=== PATIENT | female | born 1995 | race African-American/Black ===

== ENCOUNTER 2016-11-30 13:04 | Emergency (ER) | payer SELFPAY ==
[~2016-11-30] VITALS: Ht 167.6 cm; Wt 84.0 kg
[2016-11-30 13:10] VITALS: BP 138/90; PULSE 114; RESP 18; TEMP 98.6; O2SAT 98
[2016-11-30 13:28] VITALS: PULSE 90
[2016-11-30] MEDS ORDERED: IBUPROFEN 800 MG TAB PO ONE (13:30)
[2016-11-30] MEDS ORDERED: RESP: ALBUTEROL 2.5 MG/3 ML NEB (SCH) INH ONE (13:30)
[2016-11-30] MEDS ORDERED: predniSONE 20 MG TAB PO ONE (13:30)
--- NOTE | 2016-11-30 13:36 | PD ---
HPI Chief Complaint: Cold / Flu Symptoms Time Seen by Provider: 13:30 Travel History International Travel<30 days: No Contact w/Intl Traveler<30days: No Traveled to known affect area: No History of Present Illness HPI 21-year-old female presents to the emergency Department with complaint of cough , nasal congestion, chest tightness, shortness of breath, body aches 3 days. Says she has congestion in her chest and when she calls it just doesn't come up. Denies ear pain. Says she started out with a sore throat and the beginning but denies sore throat now. Denies history of asthma. Reports cough exacerbations that make her vomit. Denies chest pain, abdominal pain. Denies hemoptysis. Reports MAXIMUM TEMPERATURE 103.0 on day 1 of illness. Denies fever currently. Has not taken any medications or tried any treatments to alleviate her symptoms. No known relieving or aggravating factors. No known allergies. No other medical complaints. No other modifying factors or associated signs and symptoms. PFSH Social History Tobacco Use: Yes Allergies-Medications (Allergen,Severity, Reaction): Coded Allergies: No Known Allergies (Unverified , 11/30/16) Reported Meds & Prescriptions Reported Meds & Active Scripts Active Ibuprofen 800 Mg Tab 800 Mg PO Q6HR PRN Deltasone (Prednisone) 20 Mg Tab 40 Mg PO DAILY 4 Days start 12/01/2016 Azithromycin 500 Mg Tab 500 Mg PO DAILY Tessalon Perles (Benzonatate) 100 Mg Cap 100 Mg PO TID PRN Proair Hfa 8.5 GM Inh (Albuterol Sulfate) 90 Mcg/Act Aer 2 Puff INH Q4-6H PRN 108 mcg/actuation Review of Systems Except as stated in HPI: all other systems reviewed are Neg Physical Exam Narrative GENERAL: Well-nourished, well-developed female patient, in no acute distress; afebrile, nontoxic-appearing SKIN: Warm and dry. HEAD: Atraumatic. Normocephalic. EYES: Pupils equal and round. No scleral icterus. No injection or drainage. ENT: Mucosa pink and moist. No erythema or exudates. No uvular edema. No uvular , palatal, or tonsillar deviation. Airway patent. Nares without nasal blood, purulent drainage or septal hematoma. EARS: Bilateral pinnae and external canals appear within normal limits. Bilateral tympanic membranes without erythema, dullness or perforation. NECK: Trachea midline. No lymphadenopathy. CARDIOVASCULAR: Regular rate and rhythm. No murmur appreciated. RESPIRATORY: No accessory muscle use. Lungs with Wheezing throughout to auscultation. Breath sounds equal bilaterally. No retractions or tachypnea. No Audible wheezing noted. Consistent dry cough during physical exam. GASTROINTESTINAL: Abdomen soft, non-tender, nondistended. Hepatic and splenic margins not palpable. Bowel sounds are active 4 quadrants. MUSCULOSKELETAL: No obvious deformities. No clubbing. No cyanosis. No edema. NEUROLOGICAL: Awake and alert. Oriented 3. No obvious cranial nerve deficits. Motor grossly within normal limits. Normal speech. Moves all extremities. 5/5 strength to all extremities. PSYCHIATRIC: Appropriate mood and affect; insight and judgment normal. Data Data Last Documented VS Vital Signs Date Time Temp Pulse Resp B/P Pulse Ox O2 Delivery O2 Flow Rate FiO2 11/30/16 15:27 20 11/30/16 13:28 90 11/30/16 13:10 98.6 138/90 98 Orders Influenzae A/B Antigen (11/30/16 13:22) Chest, Single Ap (11/30/16 13:28) Prednisone (Deltasone) (11/30/16 13:30) Albuterol Neb (Albuterol Neb) (11/30/16 13:30) Ibuprofen (Motrin) (11/30/16 13:30) Albuterol-Ipratropium Neb (Duoneb Neb) (11/30/16 14:45) MDM Medical Decision Making Medical Screen Exam Complete: Yes Emergency Medical Condition: Yes Medical Record Reviewed: Yes Differential Diagnosis Acute bronchitis, influenza, pneumonia Narrative Course 21-year-old female with cold/flu symptoms 3 days. Reports MAXIMUM TEMPERATURE 103.0. Patient is afebrile and nontoxic-appearing in the ER. Reports chest tightness and shortness of breath with coughing exacerbations that cause her to vomit. Lungs are with wheezing on auscultation. Patient has consistent dry cough during physical exam. She is in no acute distress and her oxygen saturation is 98% on room air. No retractions or tachypnea. Heart rate recheck on physical exam is approximately 90 bpm. Influenza, chest x-ray, Deltasone, albuterol nebulizer, ibuprofen ordered. 1411: Influenza negative. After the first breathing Treatment the patient continued to complain of chest tightness but denied shortness of breath. The patient did have some wheezing on auscultation to the left lower lung base. DuoNeb was ordered and administered and on reexamination after the breathing treatment the patient reports improvement in symptoms without chest tightness or shortness of breath. The lungs are clear and equal throughout. Pro-air inhaler, Tessalon Perles, Deltasone, azithromycin, ibuprofen prescribed for home. I prescribed antibiotics secondary to report of fever. Patient verbalizes understanding and agreement with treatment plan. Patient is medically cleared and stable for discharge. Discussed reasons to return to the emergency department. Instructed patient to follow up with primary care provider. Patient agrees with treatment plan. The patients vital signs are stable and the patient is stable for outpatient follow-up and treatment. Patient discharged home, stable and in no acute distress. Diagnosis Primary Impression: Acute bronchitis Qualified Code: J20.9 - Acute bronchitis, unspecified organism Referrals: Primary Care Physician Patient Instructions: Acute Bronchitis (ED), General Instructions, Upper Respiratory Infection (ED) Departure Forms: School Release, Return to School Date: Dec 02, 2016 Tests/Procedures, Work Release Enter return to work date: Dec 02, 2016 Additional Instructions: Use Albuterol inhaler as prescribed Take oral steroids as prescribed and complete full course Use Tessalon Perles as prescribed to decrease coughing spasms [id number] decongestants or antihistamines as directed and as needed for symptom management Your cough can last 4-6 weeks Drink plenty of fluids to prevent dehydration Use hot air humidifier to decrease cough exacerbation Turn off ceiling fans and sleep with head of bed elevated Avoid triggers such as second hand smoke, dust, known allergens Follow-up with your primary care provider Return to the emergency department immediately with worsening of symptoms Med/Other Pt SpecificInfo: Prescription(s) given Scripts Ibuprofen 800 Mg [id number] Mg PO Q6HR PRN (PAIN) #30 TAB Ref 0 Prov:Svetlana Osuna 11/30/16 Prednisone (Deltasone)20 Mg Tab40 Mg PO DAILY 4 Days Ref 0 start 12/01/2016 Prov:Svetlana Osuna 11/30/16 Azithromycin 500 Mg [id number] Mg PO DAILY #5 TAB Ref 0 Prov:Svetlana Osuna 11/30/16 Benzonatate (Tessalon Perles)100 Mg [id number] Mg PO TID PRN (COUGH) #20 CAP Ref 0 Prov:Svetlana Osuna [employer] 11/30/16 Albuterol 8.5 GM Inh (Proair Hfa 8.5 GM Inh)90 Mcg/Act Aer2 Puff INH Q4-6H PRN ( SOB/WHEEZING) #1 INHALER Ref 0 108 mcg/actuation Prov:Svetlana OsunaP 11/30/16 Disposition: 01 DISCHARGE HOME Condition: Stable Svetlana Osuna [employer] Nov 30, 2016 13:36
--- NOTE | 2016-11-30 14:34 | RADRPT ---
EXAM DATE/TIME: 11/30/2016 13:47 [facility] COMPARISON: No previous studies available for comparison. INDICATIONS : Cough and short of breath. MEDICAL HISTORY : None. SURGICAL HISTORY : None. ENCOUNTER: Initial ACUITY: 3 days PAIN SCORE: 0/10 LOCATION: Bilateral chest FINDINGS: The lungs are clear without infiltrate, nodule, or mass. There is no appreciable pleural effusion fo r technique. Heart and mediastinum are unremarkable. CONCLUSION: No acute cardiopulmonary disease. Paul Luciano MD on November 30, 2016 at 14:32 Board Certified Radiologist. This report was verified electronically.
[2016-11-30] MEDS ORDERED: AZIT500T2 PO (14:44)
[2016-11-30] MEDS ORDERED: BENZ100 PO (14:44)
[2016-11-30] MEDS ORDERED: IBUP800T23 PO (14:44)
[2016-11-30] MEDS ORDERED: ALBUAER3 INH (14:44)
[2016-11-30] MEDS ORDERED: PRED-503 PO (14:44)
[2016-11-30] MEDS ORDERED: RESP: ALBUTEROL 2.5 MG/IPRATROPIUM 0.5 MG NEB (SCH) INH ONE (14:45)
[2016-11-30 15:27] VITALS: RESP 20
== END 2016-11-30 15:23 | disposition home or self-care (01) ==
LOC: NEPK 13:04
DX: J20.9 Acute bronchitis, unspecified (principal); Z72.0 Tobacco use
CPT/HCPCS: 71010; 87804; 94640; 94664; 99283; J7512; J7613